=== PATIENT | male | born 1945 | race Two or more races ===

== ENCOUNTER → 2025-01-30 | Outpatient (CLI) | payer OTHER ==
[2025-01-30 11:19] LABS: Urine Bacteria None Seen /hpf (None Seen)
[2025-01-30 11:21] LABS: Basophils # (auto) 0 10 ^3/uL (0-0.2); Basophils % (auto) 0.8 % (0.0-2.0); Eosinophils # (auto) 0 10 ^3/uL (0-0.8); Eosinophils % (auto) 0.4 % (0.0-7.0); Hematocrit 42.4 % (41.0-53.0); Hemoglobin 14.7 g/dL (13.5-17.5); Lymphocytes # (auto) 1.6 10 ^3/uL (0.4-5.4); Lymphocytes % (auto) 31.5 % (10.0-50.0); Mean Corpuscular Hemoglobin 33.1 pg (28.0-32.0); Mean Corpuscular Hgb Conc. 34.7 g/dL (32.0-36.0); Mean Corpuscular Volume 95.5 fL (80.0-100.0); Monocytes # (auto) 0.4 10 ^3/uL (0-1.3); Neutrophils % (auto) 60.3 % (37.0-80.0); Nucleated Red Blood Cells % 0.1 %; Platelet Count (auto) 142 10^3/uL (140-450); Red Blood Cells 4.44 10^6/uL (4.5-5.90); Red Cell Distribution Width 12.5 % (11.8-14.3)
[2025-01-30 11:26] LABS: Urine Blood Negative /uL (Negative); Urine Clarity Clear (Clear); Urine Color Yellow (Yellow); Urine Mucus FEW (None Seen); Urine Protein, UAD Negative (Negative); Urine Specific Gravity 1.021 (1.001-1.035); Urine Squamous Epithelial Cell None Seen /hpf (<5); Urine Urobilinogen Normal (Negative); Urine WBC 1 /HPF (0-3); Urine pH 5.5 (5.0-9.0)
[2025-01-30 12:01] LABS: Prostate Specific Antigen 1.53 ng/mL (0.0-4.0)
[2025-01-30 12:02] LABS: Alanine Aminotransferase 20 U/L (7-40); Albumin 4.5 g/dL (3.2-4.8); Alkaline Phosphatase 82 U/L (46-116); Anion Gap 8 (5-15); Aspartate Aminotransferase 19 U/L (13-40); BUN/Creatinine Ratio 17.9 (10.0-20.0); Blood Urea Nitrogen 17 mg/dL (9-23); Calcium 9.4 mg/dL (8.7-10.4); Carbon Dioxide 24 mmol/L (20-31); Chloride 111 mmol/L (98-107); Cholesterol 109 mg/dL (< 200); Glucose 115 mg/dL (74-106); HDL Cholesterol 58 mg/dL (40-59); LDL Cholesterol 38 mg/dL (< 100); Potassium 3.9 mmol/L (3.5-5.1); Sodium 143 mmol/L (136-145); Total Protein 6.4 g/dL (5.7-8.2); Triglycerides 55 mg/dL (< 150)
[2025-01-30 12:03] LABS: Bilirubin, Total 0.9 mg/dL (0.2-1.0)
[2025-01-30 12:05] LABS: Free T4 (Free Thyroxine) 1.11 ng/dL (0.89-1.76)
== END | disposition home or self-care (01) ==
LOC: LAB 10:59
PROVIDERS: ATTEND Internal Medicine
DX: R35.1 Nocturia (principal); Z00.01 Encounter for general adult medical examination with abnormal findings
CPT/HCPCS: 36415; 80053; 80061; 81001; 83036; 84153; 84439; 84443; 85025

== ENCOUNTER → 2025-04-19 | Outpatient (CLI) | payer OTHER | END | disposition home or self-care (01) | LOC: LAB 13:52 | PROVIDERS: ATTEND Family Medicine | DX: D48.5 Neoplasm of uncertain behavior of skin (principal) ==

== ENCOUNTER → 2025-04-26 | Outpatient (CLI) | payer OTHER | END | disposition home or self-care (01) | LOC: LAB 11:21 | PROVIDERS: ATTEND Family Medicine | DX: D48.5 Neoplasm of uncertain behavior of skin (principal) ==

== ENCOUNTER → 2025-06-21 | Outpatient (CLI) | payer OTHER | END | disposition home or self-care (01) | LOC: LAB 08:34 | PROVIDERS: ATTEND Family Medicine | DX: Z01.812 Encounter for preprocedural laboratory examination (principal); L72.3 Sebaceous cyst ==

== ENCOUNTER → 2025-07-12 | Outpatient (CLI) | payer OTHER | END | disposition home or self-care (01) | LOC: LAB 11:57 | PROVIDERS: ATTEND Family Medicine | DX: Z01.812 Encounter for preprocedural laboratory examination (principal); D48.5 Neoplasm of uncertain behavior of skin ==

== ENCOUNTER 2025-07-30 13:42 | Outpatient (CLI) | payer OTHER ==
[2025-07-30 14:06] LABS: Urine Protein, UAD Negative (Negative)
== END 2025-07-30 17:00 | disposition home or self-care (01) ==
LOC: LAB 13:42
PROVIDERS: ATTEND Urology
DX: N40.1 Benign prostatic hyperplasia with lower urinary tract symptoms (principal); R35.1 Nocturia
CPT/HCPCS: 81001; 87086

== ENCOUNTER 2025-08-12 14:39 | Emergency (ER) | payer OTHER ==
[~2025-08-12] VITALS: Ht 182.9 cm; Wt 81.9 kg
[2025-08-12 14:42] VITALS: BP 155/72; PULSE 94; RESP 18; TEMP 97.7; O2SAT 95
--- NOTE | 2025-08-12 15:15 | ED.PDOC ---
Musculoskeletal HPI Comments Seen 80-year-old male with past medical history of hypertension dyslipidemia came to the hospital due to right upper limb swelling. Per patient, a dog bite his right upper limb 2 weeks back, but subsequently the right hand become swollen and hot. He also reports of right upper limb tingling. He denies feve r, which has been, shortness of breath. Home meds: Amlodipine, lisinopril, terazosin, and atorvastatin Chief Complaint: Upper Extremity Time Seen by MD: 15:04 Reviewed Notes: Nurses Notes Allergies: Coded Allergies: NO KNOWN ALLERGIES (Unverified , 08/12/25) Mode of Arrival: Ambulatory Past Medical History Past Medical History (Other): Hypertension and dyslipidemia Constitutional: denies: chills, diaphoresis, fatigue, fever, malaise, sweats, weakness, others EENTM: denies: blurred vision, double vision, ear bleeding, ear discharge, ear drainage, ear pain, ear ringing, eye pain, eye redness, hearing loss, mouth pain, mouth swelling, nasal discharge, nose bleeding, nose congestion, nose pain , photophobia, tearing, throat pain, throat swelling, voice changes, others Respiratory: denies: cough, hemoptysis, orthopnea, SOB at rest, shortness of breath, SOB with excertion, stridor, wheezing, others Cardiovascular: denies: chest pain, dizzy spells, diaphoresis, Dyspnea on exertion, edema, irregular heart beat, left arm pain, lightheadedness, palpitations, PND, syncope, others Gastrointestinal: denies: abdomen distended, abdominal pain, blood streaked bowels, constipated, diarrhea, dysphagia, difficulty swallowing, hematemesis, melena, nausea, poor appetite, poor fluid intake, rectal bleeding, rectal pain, vomiting, others Genitourinary: denies: burning, dysuria, flank pain, frequency, hematuria, incontinence, penile discharge, penile sore, pain, testicle pain, testicle swelling, urgency, others Neurological: denies: dizziness, fainting, headache, left sided numbness, left sided weakness, numbness, paresthesia, pre-existing deficit, right sided numbness, right sided weakness, seizure, speech problems, tingling, tremors, weakness, others Musculoskeletal: reports: others (Right upper limb is swollen and hot from the raised up to med arm.); denies: back pain, gout, joint pain, joint swelling, muscle pain, muscle stiffness, neck pain Integumetry: denies: bruises, change in color, change in hair/nails, dryness, laceration, lesions, lumps, rash, wounds, others Allergic/Immunocompromised: denies: Difficulty Healing, Frequent Infections, Hives, Itching, others Hematologic/Lymphatic: denies: anemia, blood clots, easy bleeding, easy bruising, swollen glands, others Endocrine: denies: excessive hunger, excessive sweating, excessive thirst, excessive urination, flushing, intolerance to cold, intolerance to heat, unexplained weight gain, unexplained weight loss, others Psychiatric: denies: anxiety, bipolar disorder, depression, hopeless, panic disorder, schizophrenia, sleepless, suicidal, others Physical Exam General Appearance: No Apparent Distress, Normal HEENT: Normal ENT Inspection, Pharynx Normal, TMs Normal Neck: Full Range of Motion, Non-Tender, Normal, Normal Inspection Respiratory: Chest Non-Tender, Lungs Clear, No Accessory Muscle Use, No Respiratory Distress, Normal Breath Sounds Cardiovascular: No Edema, No JVD, No Murmur, No Gallop, Normal Peripheral Pulse s, Regular Rate/Rhythm Breast Exam: Deferred Gastrointestinal: No Organomegaly, Non Tender, No Pulsatile Mass, Normal Bowel Sounds, Soft Genitalia: Deferred Pelvic: Deferred Rectal: Deferred Extremities: No calf tenderness, Normal capillary refill, Normal inspection, Normal range of motion, Non-tender, No pedal edema, Other (Right upper limb is swollen and hot from breast up to med arm, nontender) Musculoskeletal : Apperance: Normal Neurologic: Alert, caddy master II-XII nml as Tested, No Motor Deficits, Normal Affect, Normal Mood, No Sensory Deficits Cerebellar Function: Normal Reflexes: Normal Skin: Dry, Normal Color, Warm Lymphatic: No Adenopathy Was a procedure done? Was a procedure done?: No Differential Diagnosis EXT Differential Diagnosis: Cellulitis, Deep Vein Thrombosis, Arthritis X-Ray, Labs, Meds, VS Vital Signs Date Time Temp Pulse Resp B/P (MAP) Pulse Ox O2 Delivery O2 Flow Rate FiO2 08/12/25 14:42 97.7 94 18 155/72 95 97.7 Lab Test 08/12/25 16:06 Range/Units White Blood Count 7.3 4.4-10.8 10^3/uL Red Blood Count 4.47 L 4.5-5.90 10^6/uL Hemoglobin 15.1 13.5-17.5 g/dL Hematocrit 42.6 41.0-53.0 % Mean Corpuscular Volume 95.2 80.0-100.0 fL Mean Corpuscular Hemoglobin 33.7 H 28.0-32.0 pg Mean Corpuscular Hemoglobin Concent 35.4 32.0-36.0 g/dL Red Cell Distribution Width 12.0 11.8-14.3 % Platelet Count 215 140-450 10^3/uL Mean Platelet Volume 8.8 6.9-10.8 fL Neutrophils (%) (Auto) 82.3 H 37.0-80.0 % Lymphocytes (%) (Auto) 9.6 L 10.0-50.0 % Monocytes (%) (Auto) 7.7 0.0-12.0 % Eosinophils (%) (Auto) 0.1 0.0-7.0 % Basophils (%) (Auto) 0.3 0.0-2.0 % Neutrophils # (Auto) 6.0 1.6-8.6 10 ^3/uL Lymphocytes # (Auto) 0.7 0.4-5.4 10 ^3/uL Monocytes # (Auto) 0.6 0-1.3 10 ^3/uL Eosinophils # (Auto) 0 0-0.8 10 ^3/uL Basophils # (Auto) 0 0-0.2 10 ^3/uL Nucleated Red Blood Cells 0.1 % Sodium Level 142 136-145 mmol/L Potassium Level 4.0 3.5-5.1 mmol/L Chloride Level 109 H 98-107 mmol/L Carbon Dioxide Level 22 20-31 mmol/L Anion Gap 11 5-15 Blood Urea Nitrogen 14 9-23 mg/dL Creatinine 0.97 0.700-1.30 mg/dL Glomerular Filtration Rate Calc 78 >90 mL/min BUN/Creatinine Ratio 14.4 10.0-20.0 Serum Glucose 121 H 74-106 mg/dL Lactic Acid Level 1.1 0.4-2.0 mmol/L Calcium Level 9.1 8.7-10.4 mg/dL Total Bilirubin 0.6 0.2-1.0 mg/dL Aspartate Amino Transferase (AST) 21 13-40 U/L Alanine Aminotransferase (ALT) 19 7-40 U/L Alkaline Phosphatase 90 46-116 U/L Total Protein 6.8 5.7-8.2 g/dL Albumin 4.4 3.2-4.8 g/dL Time of 1ST Reevaluation: 17:42 Reevaluation 1ST: Improved Patient Education/Counseling: Diagnosis, Treatment, Prognosis, Need For Follow Up Family Education/Counseling: No Family Present Comments Patient came to the hospital due to right upper limb swelling. Patient has history of the bite. On physical examination there was no open wound Upper limb was raised and swollen. Right upper ultrasound performed, ruled out DVT On subsequent checkup, patient was feeling better. Patient will be discharge with antibiotic and pain management as needed. Follow up with the PCP Sepsis Sepsis Reasesment Focused Exam Orders: Laboratory Tests 08/12/25 16:06: Lactic Acid Level 1.1 Departure 1 Departure Time of Disposition: 17:43 Impression: Primary Impression: Cellulitis Disposition: 01 HOME / SELF CARE / HOMELESS Condition: Fair Critical Care Note Critical Care Time?: Yes (35 min-critical care time only) Stability Stability form required: No Heart Score Heart Score: Heart Score Response (Comments) Value History N/A 0 EKG N/A 0 Age N/A 0 Risk Factors N/A 0 Troponin N/A 0 Total 0 ROSANNE GRIFFITH Aug 12, 2025 15:15
--- NOTE | 2025-08-12 16:10 | DVH ---
RIGHT Upper Extremity Venous Duplex Clinical History: swollen Comparison: None Technique: Duplex Doppler evaluation of the venous system of the RIGHT lower neck and upper extremity including color Doppler and spectral/pulsed waveform analysis was performed. Findings: The internal jugular vein demonstrates appropriate compressibility and waveform variability. The subclavian vein is patent on color Doppler evaluation without intraluminal thrombus and demonstra marcel waveform variability. The visualized portion of the brachiocephalic vein is patent on color Doppler evaluation without intr aluminal thrombus and demonstrates waveform variability. The axillary vein demonstrates appropriate compressibility and waveform variability. The brachial veins demonstrate appropriate compressibility and patency on Doppler evaluation. The basilic vein demonstrates appropriate compressibility and patency on Doppler evaluation. The cephalic vein demonstrates appropriate compressibility and patency on Doppler evaluation. Impression: 1. No venous thrombus identified in the RIGHT upper extremity vessels evaluated above. 2. If clinical concern/symptoms persist or worsen, short-interval follow-up study is suggested.
[2025-08-12 16:25] LABS: Hematocrit 42.6 % (41.0-53.0); Hemoglobin 15.1 g/dL (13.5-17.5); Mean Corpuscular Hemoglobin 33.7 pg (28.0-32.0); Mean Corpuscular Volume 95.2 fL (80.0-100.0); Nucleated Red Blood Cells % 0.1 %
[2025-08-12 16:32] LABS: Alanine Aminotransferase 19 U/L (7-40); Albumin 4.4 g/dL (3.2-4.8); Alkaline Phosphatase 90 U/L (46-116); Anion Gap 11 (5-15); BUN/Creatinine Ratio 14.4 (10.0-20.0); Blood Urea Nitrogen 14 mg/dL (9-23); Calcium 9.1 mg/dL (8.7-10.4); Carbon Dioxide 22 mmol/L (20-31); Potassium 4.0 mmol/L (3.5-5.1); Sodium 142 mmol/L (136-145); Total Protein 6.8 g/dL (5.7-8.2)
[2025-08-12 16:33] LABS: Bilirubin, Total 0.6 mg/dL (0.2-1.0); Chloride 109 mmol/L (98-107); Glucose 121 mg/dL (74-106)
[2025-08-12] MEDS ORDERED: AUG875T PO (17:45)
== END 2025-08-12 18:45 | disposition home or self-care (01) ==
LOC: ER 14:39
DX: L03.115 Cellulitis of right lower limb (principal); I10 Essential (primary) hypertension; E78.5 Hyperlipidemia, unspecified; W54.0XXA Bitten by dog, initial encounter; Y93.89 Activity, other specified; Y92.89 Other specified places as the place of occurrence of the external cause; Y99.8 Other external cause status
CPT/HCPCS: 36415; 80053; 83605; 85025; 93971

== ENCOUNTER 2025-08-14 08:51 | Outpatient (CLI) | payer OTHER ==
[~2025-08-14 08:51] MED LIST: AUG875T PO
[2025-08-14 09:20] LABS: Hematocrit 43.2 % (41.0-53.0); Hemoglobin 14.8 g/dL (13.5-17.5); Mean Corpuscular Hemoglobin 32.7 pg (28.0-32.0); Mean Corpuscular Volume 95.1 fL (80.0-100.0); Nucleated Red Blood Cells % 0.0 %
[2025-08-14 09:42] LABS: Alanine Aminotransferase 16 U/L (7-40); Albumin 4.4 g/dL (3.2-4.8); Alkaline Phosphatase 86 U/L (46-116); Anion Gap 10 (5-15); BUN/Creatinine Ratio 12.5 (10.0-20.0); Blood Urea Nitrogen 11 mg/dL (9-23); Calcium 9.2 mg/dL (8.7-10.4); Carbon Dioxide 25 mmol/L (20-31); Cholesterol 93 mg/dL (< 200); HDL Cholesterol 48 mg/dL (40-59); Potassium 4.0 mmol/L (3.5-5.1); Sodium 143 mmol/L (136-145); Total Protein 6.9 g/dL (5.7-8.2); Triglycerides 83 mg/dL (< 150)
[2025-08-14 09:43] LABS: Bilirubin, Total 0.7 mg/dL (0.2-1.0)
[2025-08-14 09:48] LABS: Chloride 108 mmol/L (98-107); Glucose 109 mg/dL (74-106)
== END 2025-08-14 17:00 | disposition home or self-care (01) ==
LOC: LAB 08:51
PROVIDERS: ATTEND Internal Medicine
DX: C44.319 Basal cell carcinoma of skin of other parts of face (principal); I10 Essential (primary) hypertension; E78.2 Mixed hyperlipidemia; R73.01 Impaired fasting glucose; Z00.01 Encounter for general adult medical examination with abnormal findings
CPT/HCPCS: 36415; 80053; 80061; 83036; 84439; 84443; 85025

== ENCOUNTER → 2025-08-16 | Outpatient (CLI) | payer OTHER ==
[~2025-08-16] MED LIST changes: +LISI20TA56 PO
== END | disposition home or self-care (01) ==
LOC: LAB 12:57
PROVIDERS: ATTEND Family Medicine
DX: Z01.812 Encounter for preprocedural laboratory examination (principal); C44.319 Basal cell carcinoma of skin of other parts of face

== ENCOUNTER 2025-09-16 11:26 | Inpatient (IN) | payer OTHER ==
[~2025-09-16] VITALS: Ht 182.9 cm; Wt 77.0 kg
[~2025-09-16 11:26] MED LIST changes: -LISI20TA56 PO
--- NOTE | 2025-09-16 11:57 | ED.PDOC ---
HPI Comments This is a 80 year old male TERRANCE presenting to the ED with chief complaint of palpitations. Patient reports that he suddenly started to experiencing palpitations with associated dizziness and fast heart rate since earlier this morning. Patient relays that his smart watch picked up his fast heart rate. EMS states patient was in A-Fib at a rate between the 140s and 160s. Patient denies any chest pain, SOB, headache, N/V, or syncope. Chief Complaint: Palpitations Time Seen by MD: 11:55 Reviewed Notes: Nurses Notes, Commercial Front Load Operator Notes, Medications, Allergies Allergies: Coded Allergies: NO KNOWN ALLERGIES (Unverified , 08/12/25) Home Meds Active Scripts Amoxicillin & Pot Clavulanate (AUGMENTIN TABLET) 875 Mg Tb, 875 MG PO BID for 7 Days, #14 TAB Prov:ROSANNE GRIFFITH RESDIENT 08/12/25 Information Source: Patient, Emergency Med Personnel Mode of Arrival: EMS Severity: Moderate Timing: Hours Duration: Since onset Prehospital treatment: 12 Lead EKG Onset: At Rest Cardiac Risk Factors: HTN PE Risk Factors: None Associated Signs and Symptoms: Palpitations Past Medical History PAST MEDICAL HISTORY: AFIB, HTN Surgical History: Denies all surgeries Family History Family History: Reviewed,noncontributory to illness Social History Smoker: Non-Smoker Alcohol: Occasionally Drugs: Denies Drug Use Lives In: Home Constitutional: denies: chills, diaphoresis, fatigue, fever, malaise, sweats, weakness, others EENTM: denies: blurred vision, double vision, ear bleeding, ear discharge, ear drainage, ear pain, ear ringing, eye pain, eye redness, hearing loss, mouth pain, mouth swelling, nasal discharge, nose bleeding, nose congestion, nose pain, photophobia, tearing, throat pain, throat swelling, voice changes, others Respiratory: denies: cough, hemoptysis, orthopnea, SOB at rest, shortness of breath, SOB with excertion, stridor, wheezing, others Cardiovascular: reports: palpitations; denies: chest pain, dizzy spells, diaphoresis, Dyspnea on exertion, edema, irregular heart beat, left arm pain, lightheadedness, PND, syncope, others Gastrointestinal: denies: abdomen distended, abdominal pain, blood streaked bowels, constipated, diarrhea, dysphagia, difficulty swallowing, hematemesis, melena, nausea, poor appetite, poor fluid intake, rectal bleeding, rectal pain, vomiting, others Genitourinary: denies: burning, dysuria, flank pain, frequency, hematuria, incontinence, penile discharge, penile sore, pain, testicle pain, testicle swelling, urgency, others Neurological: reports: dizziness; denies: fainting, headache, left sided numbness, left sided weakness, numbness, paresthesia, pre-existing deficit, right sided numbness, right sided weakness, seizure, speech problems, tingling, tremors, weakness, others Musculoskeletal: denies: back pain, gout, joint pain, joint swelling, muscle pain, muscle stiffness, neck pain, others Integumetry: denies: bruises, change in color, change in hair/nails, dryness, laceration, lesions, lumps, rash, wounds, others Allergic/Immunocompromised: denies: Difficulty Healing, Frequent Infections, Hives, Itching, others Hematologic/Lymphatic: denies: anemia, blood clots, easy bleeding, easy bruising, swollen glands, others Endocrine: denies: excessive hunger, excessive sweating, excessive thirst, excessive urination, flushing, intolerance to cold, intolerance to heat, unexplained weight gain, unexplained weight loss, others Psychiatric: denies: anxiety, bipolar disorder, depression, hopeless, panic disorder, schizophrenia, sleepless, suicidal, others All Other Systems: Reviewed and Negative Physical Exam General Appearance: Mild Distress, Normal HEENT: Normal ENT Inspection, PERRL/EOMI Neck: Full Range of Motion, Non-Tender, Normal, Normal Inspection Respiratory: Chest Non-Tender, Lungs Clear, No Accessory Muscle Use, No Respiratory Distress, Normal Breath Sounds Cardiovascular: Irregular, No Murmur, Normal Peripheral Pulses, Tachycardia Breast Exam: Deferred Gastrointestinal: No Organomegaly, Non Tender, No Pulsatile Mass, Normal Bowel Sounds, Soft Genitalia: Deferred Pelvic: Deferred Rectal: Deferred Extremities: No calf tenderness, Normal capillary refill, Normal inspection, Normal range of motion, Non-tender, No pedal edema Neurologic: Alert, typesetting supervisor II-XII nml as Tested, No Motor Deficits, Normal Affect, Normal Mood, No Sensory Deficits Cerebellar Function: Normal Reflexes: Normal Skin: Dry, Normal Color, Warm Peripheral Pulses: 1+ carotid (R), 1+ carotid (L) Lymphatic: No Adenopathy EKG EKG : Pulse Rate (adult): 146 Wray: Normal Cardiac Rhythm: Afib Was a procedure done? Was a procedure done?: No CP Differential Dx Differential Diagnosis: A-fib, Anxiety / Panic Attack, Electrolyte Disorder, Hyperthyroidism, Pulmonary Embolus Differential Diagnosis: CHF Differential Diagnosis: Angina, Esophageal reflux/spasm, Pulmonary Embolus X-Ray, Labs, Meds, VS Vital Signs Date Time Temp Pulse Resp B/P (MAP) Pulse Ox O2 Delivery O2 Flow Rate FiO2 09/16/25 12:31 120 09/16/25 12:30 98.0 83 17 123/74 (90) 73 98.0 09/16/25 12:29 Room Air* 0 21 09/16/25 12:24 83 123/74 09/16/25 12:21 146 09/16/25 11:31 146 09/16/25 11:30 98.0 160 18 140/80 97 98.0 Lab Test 09/16/25 12:43 Range/Units White Blood Count 7.4 4.4-10.8 10^3/uL Red Blood Count 4.59 4.5-5.90 10^6/uL Hemoglobin 14.9 13.5-17.5 g/dL Hematocrit 44.2 41.0-53.0 % Mean Corpuscular Volume 96.4 80.0-100.0 fL Mean Corpuscular Hemoglobin 32.5 H 28.0-32.0 pg Mean Corpuscular Hemoglobin Concent 33.7 32.0-36.0 g/dL Red Cell Distribution Width 12.7 11.8-14.3 % Platelet Count 167 140-450 10^3/uL Mean Platelet Volume 9.7 6.9-10.8 fL Neutrophils (%) (Auto) 77.4 37.0-80.0 % Lymphocytes (%) (Auto) 16.2 10.0-50.0 % Monocytes (%) (Auto) 5.8 0.0-12.0 % Eosinophils (%) (Auto) 0.2 0.0-7.0 % Basophils (%) (Auto) 0.4 0.0-2.0 % Neutrophils # (Auto) 5.7 1.6-8.6 10 ^3/uL Lymphocytes # (Auto) 1.2 0.4-5.4 10 ^3/uL Monocytes # (Auto) 0.4 0-1.3 10 ^3/uL Eosinophils # (Auto) 0 0-0.8 10 ^3/uL Basophils # (Auto) 0 0-0.2 10 ^3/uL Nucleated Red Blood Cells 0.0 % Prothrombin Time 11.9 H 9.3-11.8 sec Prothrombin Time INR 1.14 0.9-1.15 Activated Partial Thromboplast Time 25.0 24.5-34.5 SEC D-Dimer, Quantitative 0.35 0.0-0.49 mg/L FEU Sodium Level 145 136-145 mmol/L Potassium Level 3.9 3.5-5.1 mmol/L Chloride Level 109 H 98-107 mmol/L Carbon Dioxide Level 26 20-31 mmol/L Anion Gap 10 5-15 Blood Urea Nitrogen 15 9-23 mg/dL Creatinine 0.93 0.700-1.30 mg/dL Glomerular Filtration Rate Calc 82 >90 mL/min BUN/Creatinine Ratio 16.1 10.0-20.0 Serum Glucose 122 H 74-106 mg/dL Calcium Level 9.1 8.7-10.4 mg/dL Magnesium Level 2.2 1.6-2.6 mg/dL Total Bilirubin 1.1 H 0.2-1.0 mg/dL Aspartate Amino Transferase (AST) 21 13-40 U/L Alanine Aminotransferase (ALT) 19 7-40 U/L Alkaline Phosphatase 86 46-116 U/L Troponin I High Sensitivity 14 </=54 ng/L Total Protein 6.6 5.7-8.2 g/dL Albumin 4.3 3.2-4.8 g/dL Thyroid Stimulating Hormone (TSH) 0.90 0.55-4.78 uIU/mL Current Medications Medications (Trade) Dose Ordered Sig/Shan Route Start Time Stop Time Status Last Admin Aspirin 162 mg ONCE ONCE PO 09/16/25 12:00 09/16/25 12:12 DC 09/16/25 12:24 Sodium Chloride 1,000 ml @ 150 mls/hr Q6H40M ONCE IV 09/16/25 12:00 09/16/25 18:39 09/16/25 12:24 Metoprolol Tartrate (Lopressor) 2.5 mg ONCE ONCE IV 09/16/25 12:00 09/16/25 12:12 DC 09/16/25 12:24 [place] [id number] Ph: [phone] DIAGNOSTIC IMAGING Diagnostic Imaging Report : [id number] Signed PATIENT: JENNIFER ROGERSCCT: [id number] UNIT: [id number] : 1945 LOC: ER ROOM / BED: / AGE / SEX: 80 / M ADM STATUS: REG ER SERVICE 115 ORDERING PHYSICIAN: LIZ THOMAS MD PROCEDURE(s): CXR2 - CHEST TWO VIEWS ROUTINE REASON: Atrial fibrillation uncontrolled ORDER NUMBER(s): [id number], ACCESSION NUMBER(s): [id number] XY CHEST TWO VIEWS ROUTINE CLINICAL HISTORY: Atrial fibrillation uncontrolled COMPARISON: None TECHNIQUE: Frontal and lateral view of the chest was obtained FINDINGS: Lines and Tubes: None Lungs: No focal consolidation. Pleura: No effusion. No pneumothorax. Cardiomediastinal contours: Unremarkable Bones: No acute osseous abnormality. IMPRESSION: 1. No acute cardiopulmonary disease. ATED BY: DARSHAN BARRETO Jr., DO DICTATED DATE/TIME: 09/16/251225 SIGNED BY: DARSHAN BARRETO Jr., SIGNED DATE/TIME: 09/16/251225 CC: X-Ray, Labs, Meds, VS Comment Course in the hospital eventful patient came in because of palpitation first- time no history of irregular heartbeats Chest x-ray is normal EKG shows uncontrolled atrial fibrillation at 146 CBC normal INR 1.14 D-dimer 0.35 CMP normal Magnesium 2.2 Troponin 14 TSH 0.90 Patient will be admitted for atrial fibrillation first-time Images Reviewed?: Images reviewed and evaluated by me Time of 1ST Reevaluation: 12:55 Reevaluation 1ST: Unchanged Patient Education/Counseling: Diagnosis, Treatment, Prognosis, Need For Follow Up Family Education/Counseling: Diagnosis, Treatment, Prognosis, Need For Follow Up, No Family Present SEPSIS Sepsis Screen Date sepsis recognized/suspect: Sep 16, 2025 Time Sepsis recognized/suspect: 1150 Recent Procedure: No On Antibiotic Therapy: No Respiratory Rate >20: No Heart Rate >90: Yes Temp<36 C (96.8 F) or >38.3 C: No SBP <90 or MAP <65 mmHG: No New Acute Mental Status Change: No Is the patient on CPAP, BIPAP,: No Physician Orders Electrocardigram (09/16/25 11:41) Electrocardigram (09/16/25 12:41) Electrocardigram (09/16/25 14:41) Heplock Iv (09/16/25 11:55) Blood Pressure (09/16/25 11:55) Chest Two Views Routine (09/16/25 11:55) Sodium Chloride 0.9% (09/16/25 12:00) Urinalysis (09/16/25 11:55) Vital Signs Date Time Temp Pulse Resp B/P (MAP) Pulse Ox O2 Delivery O2 Flow Rate FiO2 09/16/25 12:31 120 09/16/25 12:30 98.0 83 17 123/74 (90) 73 98.0 09/16/25 12:29 Room Air* 0 21 09/16/25 12:24 83 123/74 09/16/25 12:21 146 09/16/25 11:31 146 09/16/25 11:30 98.0 160 18 140/80 97 98.0 Laboratory Tests Test 09/16/25 12:43 White Blood Count 7.4 10^3/uL (4.4-10.8) Medications Medications Dose Ordered Sig/Shan Route Start Time Stop Time Status Last Admin Dose Admin Aspirin 162 mg ONCE ONCE PO 09/16/25 12:00 09/16/25 12:12 DC 09/16/25 12:24 Metoprolol Tartrate 2.5 mg ONCE ONCE IV 09/16/25 12:00 09/16/25 12:12 DC 09/16/25 12:24 Sodium Chloride 1,000 ml @ 150 mls/hr Q6H40M ONCE IV 09/16/25 12:00 09/16/25 18:39 09/16/25 12:24 Departure 1 Departure Time of Disposition: 13:33 Impression: Primary Impression: Paroxysmal atrial fibrillation Additional Impression: History of hypertension Disposition: ADMITTED INPATIENT Admit to: Tele Condition: Fair Critical Care Note Critical Care Time?: No Stability Stability form required: Yes Unstable for transfer: Telemetry monitoring (Telemetry monitoring required), Requires medication (Requires Med for stabilization) Heart Score Heart Score: Heart Score Response (Comments) Value History Slightly Suspicious 0 EKG Repolarization Disturb 1 Age >65 2 Risk Factors 1 or 2 risk factors 1 Troponin Normal limit 0 Total 4 I personally scribed for LIZ THOMAS MD ([email or web address]) on 09/16/25 at 11:57. Electronically submitted by Dre Kay ([email or web address]). I personally scribed for LIZ THOMAS MD ([email or web address]) on 09/16/25 at 12:53. Electronically submitted by Dre Kay ([email or web address]). LIZ THOMAS MD Sep 16, 2025 11:57
[2025-09-16] MEDS: SODIUM CHLORIDE 0.9% 1,000 ML IV ONE (12:24)
[2025-09-16] MEDS: METOPROLOL TARTRATE 1MG/1ML-5ML VIAL IV ONE (12:24)
--- NOTE | 2025-09-16 12:30 | DVH ---
XY CHEST TWO VIEWS ROUTINE CLINICAL HISTORY: Atrial fibrillation uncontrolled COMPARISON: None TECHNIQUE: Frontal and lateral view of the chest was obtained FINDINGS: Lines and Tubes: None Lungs: No focal consolidation. Pleura: No effusion. No pneumothorax. Cardiomediastinal contours: Unremarkable Bones: No acute osseous abnormality. IMPRESSION: 1. No acute cardiopulmonary disease.
[2025-09-16 13:04] LABS: Hematocrit 44.2 % (41.0-53.0); Hemoglobin 14.9 g/dL (13.5-17.5); Mean Corpuscular Hemoglobin 32.5 pg (28.0-32.0); Mean Corpuscular Volume 96.4 fL (80.0-100.0); Nucleated Red Blood Cells % 0.0 %
[2025-09-16 13:21] LABS: INR 1.14 (0.9-1.15); Partial Thromboplastin Time 25.0 SEC (24.5-34.5); Prothrombin Time 11.9 sec (9.3-11.8)
[2025-09-16 13:23] LABS: Alanine Aminotransferase 19 U/L (7-40); Albumin 4.3 g/dL (3.2-4.8); Alkaline Phosphatase 86 U/L (46-116); Anion Gap 10 (5-15); BUN/Creatinine Ratio 16.1 (10.0-20.0); Blood Urea Nitrogen 15 mg/dL (9-23); Calcium 9.1 mg/dL (8.7-10.4); Carbon Dioxide 26 mmol/L (20-31); Magnesium 2.2 mg/dL (1.6-2.6); Potassium 3.9 mmol/L (3.5-5.1); Sodium 145 mmol/L (136-145); Total Protein 6.6 g/dL (5.7-8.2)
[2025-09-16 13:24] LABS: Bilirubin, Total 1.1 mg/dL (0.2-1.0)
[2025-09-16 13:28] LABS: Chloride 109 mmol/L (98-107); Glucose 122 mg/dL (74-106)
[2025-09-16] MEDS ORDERED: LISI20TA56 PO (14:51)
[2025-09-16] MEDS ORDERED: HYDROcodone-ACET 5/325MG TAB PO PRN (15:00)
[2025-09-16] MEDS ORDERED: DOCUSATE SOD 100 MG CAP PO PRN (15:00)
[2025-09-16] MEDS ORDERED: ONDANSETRON HCL 4 MG/2 ML VIAL IV PRN (15:00)
[2025-09-16] MEDS ORDERED: NITROGLYCERIN 0.4 MG SL TAB SL PRN (15:00)
[2025-09-16] MEDS ORDERED: MORPHINE SULFATE INJ 2 MG/ml SYRG IV PRN (15:00)
[2025-09-16] MEDS ORDERED: ACETAMINOPHEN 325 MG TAB PO PRN (15:00)
--- NOTE | 2025-09-16 15:09 | DVHHP2 ---
History of Present Illness Reason for Visit: Palpitations History of Present Illness González Alcala is an 80-year-old male with past medical history of hypertension, who came to the hospital for palpitations. Patient states he was at home when he suddenly began to feel palpitations and dizziness. He checked his smart watch that told him his heart rate was 140-160's. Denies any chest pain, shortness of breath, nausea, vomiting, or syncope. Denies any history of atrial fibrillation. Cardiovascular: HTN Past Surgical History: None Smoke: No ALCOHOL: rare Drugs: None Lives: Alone Domestic Violence: Neg Review of Systems Constitutional: No: Fever, Chills, Sweats, Weakness, Malaise, Other Eyes: No: Pain, Vision change, Conjunctivae inflammation, Eyelid inflammation, Other, Redness ENT: No: Ear pain, Ear discharge, Nose pain, Nose discharge, Nose congestion, Mouth pain, Mouth swelling, Throat pain, Throat swelling, Other Respiratory: No: Cough, Dry, Shortness of breath, SOB with excertion, Wheezing, Hemoptysis, Pleuritic Pain, Sputum, Wheezing, Other Cardiovascular: Palpitations; No: Chest Pain, Orthopnea, Paroxysmal Noc. Dyspnea, Edema, Lt Headedness, Other Gastrointestinal: No: Nausea, Vomiting, Abdominal Pain, Diarrhea, Constipation, Melena, Hematochezia, Other Genitourinary: No Dysuria, No Frequency, No Incontinence, No Hematuria, No Retention, No Other Musculoskeletal: No: other, neck pain, shoulder pain, arm pain, back pain, hand pain, leg pain, foot pain Skin: No: Rash, Lesions, Jaundice, Bruising, Other Neurological: Other (dizziness); No: Weakness, Numbness, Incoordination, Change in speech, Confusion, Seizures Allergies: Coded Allergies: NO KNOWN ALLERGIES (Unverified , 08/12/25) Exam Vital Signs Vital Signs Date Time Temp Pulse Resp B/P (MAP) Pulse Ox O2 Delivery O2 Flow Rate FiO2 09/16/25 14:28 109 09/16/25 14:00 97 124/84 (97) 97 09/16/25 12:30 98.0 98.0 09/16/25 12:29 Room Air* 0 21 General Appearance: Alert, Oriented X3, Cooperative, moderate distress HEENT: Atraumatic, PERRLA, Mucous membr. moist/pink Respiratory: Clear to auscultation, Normal air movement Cardiovascular: Normal S1, Normal S2, Other (atrial fibrillation) Abdominal: Normal bowel sounds, Soft, No tenderness, No hepatospenomegaly Extremities: No clubbing, No cyanosis, No edema, Normal pulses, No tenderness/swelling Skin: No rashes, No breakdown, No significant lesion Neuro: Normal gait, Normal speech, Strength at 5/5 X4 ext Psych/Mental Status: Mental status NL, Mood NL Labs/Xrays Labs Test 09/16/25 12:43 Range/Units White Blood Count 7.4 4.4-10.8 10^3/uL Red Blood Count 4.59 4.5-5.90 10^6/uL Hemoglobin 14.9 13.5-17.5 g/dL Hematocrit 44.2 41.0-53.0 % Mean Corpuscular Volume 96.4 80.0-100.0 fL Mean Corpuscular Hemoglobin 32.5 H 28.0-32.0 pg Mean Corpuscular Hemoglobin Concent 33.7 32.0-36.0 g/dL Red Cell Distribution Width 12.7 11.8-14.3 % Platelet Count 167 140-450 10^3/uL Mean Platelet Volume 9.7 6.9-10.8 fL Neutrophils (%) (Auto) 77.4 37.0-80.0 % Lymphocytes (%) (Auto) 16.2 10.0-50.0 % Monocytes (%) (Auto) 5.8 0.0-12.0 % Eosinophils (%) (Auto) 0.2 0.0-7.0 % Basophils (%) (Auto) 0.4 0.0-2.0 % Neutrophils # (Auto) 5.7 1.6-8.6 10 ^3/uL Lymphocytes # (Auto) 1.2 0.4-5.4 10 ^3/uL Monocytes # (Auto) 0.4 0-1.3 10 ^3/uL Eosinophils # (Auto) 0 0-0.8 10 ^3/uL Basophils # (Auto) 0 0-0.2 10 ^3/uL Nucleated Red Blood Cells 0.0 % Prothrombin Time 11.9 H 9.3-11.8 sec Prothrombin Time INR 1.14 0.9-1.15 Activated Partial Thromboplast Time 25.0 24.5-34.5 SEC D-Dimer, Quantitative 0.35 0.0-0.49 mg/L FEU Sodium Level 145 136-145 mmol/L Potassium Level 3.9 3.5-5.1 mmol/L Chloride Level 109 H 98-107 mmol/L Carbon Dioxide Level 26 20-31 mmol/L Anion Gap 10 5-15 Blood Urea Nitrogen 15 9-23 mg/dL Creatinine 0.93 0.700-1.30 mg/dL Glomerular Filtration Rate Calc 82 >90 mL/min BUN/Creatinine Ratio 16.1 10.0-20.0 Serum Glucose 122 H 74-106 mg/dL Calcium Level 9.1 8.7-10.4 mg/dL Magnesium Level 2.2 1.6-2.6 mg/dL Total Bilirubin 1.1 H 0.2-1.0 mg/dL Aspartate Amino Transferase (AST) 21 13-40 U/L Alanine Aminotransferase (ALT) 19 7-40 U/L Alkaline Phosphatase 86 46-116 U/L Troponin I High Sensitivity 14 </=54 ng/L Total Protein 6.6 5.7-8.2 g/dL Albumin 4.3 3.2-4.8 g/dL Thyroid Stimulating Hormone (TSH) 0.90 0.55-4.78 uIU/mL XY CHEST TWO VIEWS ROUTINE FINDINGS: Lines and Tubes: None Lungs: No focal consolidation. Pleura: No effusion. No pneumothorax. Cardiomediastinal contours: Unremarkable Bones: No acute osseous abnormality. IMPRESSION: 1. No acute cardiopulmonary disease. SEPSIS Sepsis Screen Date sepsis recognized/suspect: Sep 16, 2025 Time Sepsis recognized/suspect: 1150 Recent Procedure: No On Antibiotic Therapy: No Respiratory Rate >20: No Heart Rate >90: Yes Temp<36 C (96.8 F) or >38.3 C: No SBP <90 or MAP <65 mmHG: No New Acute Mental Status Change: No Is the patient on CPAP, BIPAP,: No Physician Orders Electrocardigram (09/16/25 11:41) Electrocardigram (09/16/25 12:41) Electrocardigram (09/16/25 14:41) Heplock Iv (09/16/25 11:55) Blood Pressure (09/16/25 11:55) Chest Two Views Routine (09/16/25 11:55) Sodium Chloride 0.9% (09/16/25 12:00) Urinalysis (09/16/25 11:55) Admit (09/16/25 14:47) Code Status (09/16/25 14:47) 2 Gm Sodium Diet (09/16/25 Dinner) Hydrocodone-Acet 5/325mg Tab ([place] 5/32 (09/16/25 15:00) Ondansetron Hcl (Zofran) (09/16/25 15:00) Docusate Sodium Capsule (Colace Capsule) (09/16/25 15:00) Enoxaparin Sodium (Lovenox) (09/17/25 10:00) Complete Blood Count (09/17/25 04:00) Comprehensive Metabolic Panel (09/17/25 04:00) Echo 2d Mode Cardiac Dop (09/16/25 14:47) Condition: Serious (09/16/25 14:47) Acetaminophen Tablet (Tylenol Tablet) (09/16/25 15:00) Nitroglycerin Sublingual (Ntrostat Subli (09/16/25 15:00) Morphine Sulfate Injection (09/16/25 15:00) Stat Ekg For Chest Pain (09/16/25 14:47) Notify Md Of Changes From Base (09/16/25 14:47) Warble Saw Operator For 24 Hours (09/16/25 14:47) Emergency Dysrhythmia Protocol (09/16/25 14:47) Rhythm Strips Once Every Shift (09/16/25 14:47) Oxygen By Nasal Cannula (09/16/25 14:47) Amiodarone 150 Mg Bolus (09/16/25 15:00) Amiodarone Drip 1 Mg/Min X 6hr (09/16/25 15:00) Amiodarone Drip 0.5 Mg/Min (09/16/25 21:00) * Cardiology Consult (09/16/25 14:47) Lisinopril Tablet (Zestril Tablet) (09/16/25 22:00) Vital Signs Date Time Temp Pulse Resp B/P (MAP) Pulse Ox O2 Delivery O2 Flow Rate FiO2 09/16/25 14:28 109 09/16/25 14:00 104 97 124/84 (97) 97 09/16/25 13:24 95 131/82 09/16/25 12:31 120 09/16/25 12:30 98.0 83 17 123/74 (90) 73 98.0 09/16/25 12:29 Room Air* 0 21 09/16/25 12:24 83 123/74 09/16/25 12:21 146 09/16/25 11:31 146 09/16/25 11:30 98.0 160 18 140/80 97 98.0 Laboratory Tests Test 09/16/25 12:43 White Blood Count 7.4 10^3/uL (4.4-10.8) Medications Medications Dose Ordered Sig/Shan Route Start Time Stop Time Status Last Admin Dose Admin Aspirin 162 mg ONCE ONCE PO 09/16/25 12:00 09/16/25 12:12 DC 09/16/25 12:24 162 MG Metoprolol Tartrate 2.5 mg ONCE ONCE IV 09/16/25 12:00 09/16/25 12:12 DC 09/16/25 12:24 2.5 MG Sodium Chloride 1,000 ml @ 150 mls/hr Q6H40M ONCE IV 09/16/25 12:00 09/16/25 18:39 09/16/25 12:24 150 MLS/HR Assessment/Plan Assessment/Plan Assessment: New onset atrial fibrillation, Hypertension, Plan: Admit to Tele, Cardiology consult, IV Amiodarone, ECHO, TSH, Lipid panel, A1c, Patient states he takes 4 medications at home, he could only remember 1, states he will try to find someone to bring in his medications, Plan discussed with: Patient My Orders Orders - ASHLEY BRITT Procedure Category Date Status Time Admit ADMIT 09/16/25 Transmitted 14:47 Code Status CODE 09/16/25 Transmitted 14:47 2 Gm Sodium Diet DIET 09/16/25 Transmitted Dinner Hydrocodone-Acet PHA 09/16/25 Transmitted 5/325mg Tab ([place] 15:00 Ondansetron Hcl PHA 09/16/25 Transmitted (Zofran) 15:00 Docusate Sodium PHA 09/16/25 Transmitted Capsule (Colace 15:00 Enoxaparin Sodium PHA 09/17/25 Transmitted (Lovenox) 10:00 Complete Blood Count LAB 09/17/25 Verified 04:00 Comprehensive LAB 09/17/25 Verified Metabolic Panel 04:00 Echo 2d Mode Cardiac US 09/16/25 Logged DOP 14:47 Condition: Serious ANTONIA 09/16/25 In Process 14:47 Acetaminophen Tablet PHA 09/16/25 Transmitted (Tylenol Tablet) 15:00 Nitroglycerin PHA 09/16/25 Transmitted Sublingual (Ntrostat 15:00 Morphine Sulfate PHA 09/16/25 Transmitted Injection 15:00 Stat Ekg For Chest [facility] 09/16/25 In Process Pain 14:47 Notify Of Changes [facility] 09/16/25 In Process From Base 14:47 Warble Saw Operator For [facility] 09/16/25 In Process 24 Hours 14:47 Emergency Dysrhythmia [facility] 09/16/25 In Process Protocol 14:47 Rhythm Strips Once [facility] 09/16/25 In Process Every Shift 14:47 Oxygen By Nasal RT 09/16/25 Transmitted Cannula 14:47 Amiodarone 150 Mg [facility] 09/16/25 Transmitted Bolus 15:00 Amiodarone Drip 1 PHA 09/16/25 Transmitted Mg/Min X 6hr 15:00 Amiodarone Drip 0.5 PHA 09/16/25 Transmitted Mg/Min 21:00 * Cardiology Consult CONS 09/16/25 Transmitted 14:47 Lisinopril Tablet [facility] 09/16/25 Verified (Zestril Tablet) 22:00 Date of Service: Sep 16, 2025 Billing Provider: ASHLEY BRITT Common Visit Codes: [id number] INP/OBS CARE (HIGH) ASHLEY BRITT Sep 16, 2025 15:09
--- NOTE | 2025-09-16 15:19 | ECG ---
[facility] Test Date: 2025-09-16 Test Time: 11:31:20 Pat Name: JENNIFER ROGERS Department: [facility] ED Patient ID: [facility]-[id number] Room: 0220T Gender: M Environmental Manager: eva : 1945 Requested By: LIZ THOMAS Order Number: [id number] Reading MD: Fletcher Cleaning Measurements Intervals [place] Rate: 146 P: 0 IA: 0 QRS: 25 QRSD: 90 T: 80 QT: 317 QTc: 494 Interpretive Statements Atrial fibrillation with rapid V-rate Repolarization abnormality, prob rate related Baseline wander in lead(s) V6 Electronically Signed On 09-23-2025 13:42:50 PDT by Fletcher Cleaning Please click the below link to view image of tracing.
--- NOTE | 2025-09-16 15:20 | ECG ---
[facility] Test Date: 2025-09-16 Test Time: 14:28:35 Pat Name: JENNIFER ROGERS Department: [facility] ED Patient ID: [facility]-[id number] Room: 0220T Gender: M Feed Preparation Operator: eva : 1945 Requested By: LIZ THOMAS Order Number: [id number] Reading MD: Fletcher Cleaning Measurements Intervals [place] Rate: 109 P: 0 VA: 0 QRS: 38 QRSD: 91 T: 69 QT: 345 QTc: 465 Interpretive Statements Atrial fibrillation Minimal ST depression, anterolateral leads Electronically Signed On 09-23-2025 13:43:13 PDT by Fletcher Celaning Please click the below link to view image of tracing.
[2025-09-16] MEDS: AMIODARONE BOLUS KIT 100 ML IV ONE (15:49)
[2025-09-16] MEDS: AMIODARONE 360mg/200mL PREMIX 200 ML IV ONE (16:08)
--- NOTE | 2025-09-16 17:04 | DVHCONRES ---
Date Seen: Sep 16, 2025 Resident Creating Document: PEREZ JACKSON RESIDENT Referring Physician Beatrice TARANGO Reason for Consultation new onset afib History of Present Illness An 80y old with PMHx hypertension and skin cancer on the face who came to ED due to palpitations. The patient states the palpitations started at 8 am and his apple watch showed HR 140s, he denies that this happened before, he denies SOB, chest pain or other symptoms At admission, it was found his HR 160s and metoprolol IV was given, later on amiodarone drip was started ECHO (pending official report): preserved EF and no LV thrombus Past Medical History Hypertension and skin cancer (resected) Past Surgical History skin biopsy Allergies: Coded Allergies: NO KNOWN ALLERGIES (Unverified , 08/12/25) Home Meds Active Scripts Amoxicillin & Pot Clavulanate (AUGMENTIN TABLET) 875 Mg Tb, 875 MG PO BID for 7 Days, #14 TAB Prov:ROSANNE GRIFFITH RESDIENT 08/12/25 Reported Medications Lisinopril (Lisinopril) 20 Mg Tab, 1 TAB PO BID, #30 TAB 5 Refills 09/16/25 Home Meds Lisinopril and amlodipine Current Medications Current Medications Medications (Trade) Dose Ordered Sig/Shan Route PRN Reason Start Time Stop Time Status Last Admin Acetaminophen/ Hydrocodone Bitart ([place] 5/325MG Tab) 1 tab Q4HP PRN PO MODERATE PAIN (4-6 PAIN SCALE) 09/16/25 15:00 Ondansetron HCl (Zofran) 4 mg Q4HP PRN IV NAUSEA / VOMITING 09/16/25 15:00 Docusate Sodium (Colace Capsule) 100 mg BIDPRN PRN PO FOR CONSTIPATION 09/16/25 15:00 Enoxaparin Sodium (Lovenox) 40 mg DAILY SC 09/17/25 10:00 Acetaminophen (Tylenol Tablet) 650 mg Q6HP PRN PO PAIN SCALE 1-3 OR TEMP>100.4 09/16/25 15:00 Nitroglycerin (Ntrostat Sublingual) 0.4 mg Q5MINP PRN SL FOR CHEST PAIN 09/16/25 15:00 Morphine Sulfate 2 mg Q30M PRN IV FOR CHEST PAIN 09/16/25 15:00 Amiodarone HCL/ Dextrose 200 ml @ 16.66 mls/ hr Q12H IV 09/16/25 21:00 Lisinopril (Zestril Tablet) 20 mg BID PO 09/16/25 22:00 Review of Systems States palpitations, denies chest pain, SOB, denies other symptoms Vital Signs Vital Signs Date Time Temp Pulse Resp B/P (MAP) Pulse Ox O2 Delivery O2 Flow Rate FiO2 09/16/25 14:28 109 09/16/25 14:00 97 124/84 (97) 97 09/16/25 12:30 98.0 98.0 09/16/25 12:29 Room Air* 0 21 Physical Exam General: alert and oriented HEENT: No icterus or JVD appreciated. Cardiac: Irregular heart rhythm Lungs: clear . Abdomen: no tender at palpation Extremities: unremarkable Neuro: unremarkable Labs/Diagnostic Data Labs Test 09/16/25 12:43 Range/Units White Blood Count 7.4 4.4-10.8 10^3/uL Red Blood Count 4.59 4.5-5.90 10^6/uL Hemoglobin 14.9 13.5-17.5 g/dL Hematocrit 44.2 41.0-53.0 % Mean Corpuscular Volume 96.4 80.0-100.0 fL Mean Corpuscular Hemoglobin 32.5 H 28.0-32.0 pg Mean Corpuscular Hemoglobin Concent 33.7 32.0-36.0 g/dL Red Cell Distribution Width 12.7 11.8-14.3 % Platelet Count 167 140-450 10^3/uL Mean Platelet Volume 9.7 6.9-10.8 fL Neutrophils (%) (Auto) 77.4 37.0-80.0 % Lymphocytes (%) (Auto) 16.2 10.0-50.0 % Monocytes (%) (Auto) 5.8 0.0-12.0 % Eosinophils (%) (Auto) 0.2 0.0-7.0 % Basophils (%) (Auto) 0.4 0.0-2.0 % Neutrophils # (Auto) 5.7 1.6-8.6 10 ^3/uL Lymphocytes # (Auto) 1.2 0.4-5.4 10 ^3/uL Monocytes # (Auto) 0.4 0-1.3 10 ^3/uL Eosinophils # (Auto) 0 0-0.8 10 ^3/uL Basophils # (Auto) 0 0-0.2 10 ^3/uL Nucleated Red Blood Cells 0.0 % Prothrombin Time 11.9 H 9.3-11.8 sec Prothrombin Time INR 1.14 0.9-1.15 Activated Partial Thromboplast Time 25.0 24.5-34.5 SEC D-Dimer, Quantitative 0.35 0.0-0.49 mg/L FEU Sodium Level 145 136-145 mmol/L Potassium Level 3.9 3.5-5.1 mmol/L Chloride Level 109 H 98-107 mmol/L Carbon Dioxide Level 26 20-31 mmol/L Anion Gap 10 5-15 Blood Urea Nitrogen 15 9-23 mg/dL Creatinine 0.93 0.700-1.30 mg/dL Glomerular Filtration Rate Calc 82 >90 mL/min BUN/Creatinine Ratio 16.1 10.0-20.0 Serum Glucose 122 H 74-106 mg/dL Calcium Level 9.1 8.7-10.4 mg/dL Magnesium Level 2.2 1.6-2.6 mg/dL Total Bilirubin 1.1 H 0.2-1.0 mg/dL Aspartate Amino Transferase (AST) 21 13-40 U/L Alanine Aminotransferase (ALT) 19 7-40 U/L Alkaline Phosphatase 86 46-116 U/L Troponin I High Sensitivity 14 </=54 ng/L Total Protein 6.6 5.7-8.2 g/dL Albumin 4.3 3.2-4.8 g/dL Thyroid Stimulating Hormone (TSH) 0.90 0.55-4.78 uIU/mL Assessment New onset atrial fibrillation with RVR CHADVASC 3 Hypertension H/o skin cancer Plan/Recommendation Case discussed with Dr Mcgowan. A 80y old with HTN who came for new onset of atrial fibrillation. Because the onset was less than 48h and no intracardiac thrombus, we agree on amiodarone cardioversion. We are pending on the official report of the echocardiogram to rule out structural disease. Due to CHADVASC of 3, therapeutic enoxaparin is started. Patient still on afib but his HR is getting better, we will continue to follow up and later transition to oral medications. PT SEEN AND EXAMINED WITH CV TEAM AGREE WITH RESIDENT ASSESSMENT AND PLAN SHORT RUN OF AFIB, NEW ONSET CHECK ECHO RHYTHM CONTROL , WILL LIKELY CONVERT WITH AMIO Plan discussed with: Patient PEREZ JACKSON Sep 16, 2025 17:04 NADIA MCGOWAN MD Sep 17, 2025 17:31
[2025-09-16 17:14] LABS: Triglycerides 74 mg/dL (< 150)
[2025-09-16 17:16] LABS: Cholesterol 103 mg/dL (< 200); HDL Cholesterol 55 mg/dL (40-59)
[2025-09-16 19:15] VITALS: PULSE 90; RESP 14; O2SAT 97
[2025-09-16] MEDS: AMIODARONE 360mg/200mL PREMIX 200 ML IV SCH (21:18)
[2025-09-16] MEDS: ENOXAPARIN SOD 80 MG/0.8ML SYRINGE SC SCH (22:19)
[2025-09-16] MEDS: LISINOPRIL 20 MG TAB PO SCH (22:19)
[2025-09-16 22:29] VITALS: BP 138/88; PULSE 63; RESP 18; TEMP 97.7; TEMP 98.6; O2SAT 97
[2025-09-17] VITALS (9 sets, daily range): BP systolic 132–145; BP diastolic 71–90; PULSE 58–87; RESP 16–18; TEMP 97.9–98.4; O2SAT 96–97
[2025-09-17 07:06] LABS: Hematocrit 45.4 % (41.0-53.0); Hemoglobin 15.3 g/dL (13.5-17.5); Mean Corpuscular Hemoglobin 32.3 pg (28.0-32.0); Mean Corpuscular Volume 95.4 fL (80.0-100.0); Nucleated Red Blood Cells % 0.0 %
[2025-09-17 07:28] LABS: Alanine Aminotransferase 18 U/L (7-40); Albumin 4.1 g/dL (3.2-4.8); Alkaline Phosphatase 80 U/L (46-116); Anion Gap 12 (5-15); BUN/Creatinine Ratio 12.8 (10.0-20.0); Bilirubin, Total 0.9 mg/dL (0.2-1.0); Blood Urea Nitrogen 11 mg/dL (9-23); Carbon Dioxide 26 mmol/L (20-31); Chloride 106 mmol/L (98-107); Potassium 3.5 mmol/L (3.5-5.1); Sodium 144 mmol/L (136-145); Total Protein 6.3 g/dL (5.7-8.2)
[2025-09-17 07:34] LABS: Calcium 8.6 mg/dL (8.7-10.4); Glucose 110 mg/dL (74-106)
[2025-09-17] MEDS ORDERED: ENOXAPARIN SOD 40 MG/0.4 ML SYRINGE SC SCH (10:00)
--- NOTE | 2025-09-17 13:24 | DVHPNRES ---
Progress Note Date Seen: Sep 17, 2025 Resident Creating Document: PEREZ JACKSON RESIDENT Medical Necessity Reason Pt with a Central, PICC or Fol: No Subjective Review of Systems Patient is seen and examined at bedside, no chest pain, no palpitations, no SOB Objective vital signs Vital Sign Date Time Temp Pulse Resp B/P (MAP) Pulse Ox O2 Delivery O2 Flow Rate FiO2 09/17/25 09:43 142/77 09/17/25 08:57 97.9 61 18 97 97.9 09/17/25 08:00 Room Air* 0 21 Total Intake and Output 09/16/25 09/16/25 09/17/25 15:00 23:00 07:00 Intake Total 450 ml 616.65 ml 200 ml Balance 450 ml 616.65 ml 200 ml medications Current Medications Medications Dose Ordered Sig/Shan Route Start Time Stop Time Status Last Admin Dose Admin Acetaminophen/ Hydrocodone Bitart 1 tab Q4HP PRN PO 09/16/25 15:00 Ondansetron HCl 4 mg Q4HP PRN IV 09/16/25 15:00 Docusate Sodium 100 mg BIDPRN PRN PO 09/16/25 15:00 Acetaminophen 650 mg Q6HP PRN PO 09/16/25 15:00 Nitroglycerin 0.4 mg Q5MINP PRN SL 09/16/25 15:00 Morphine Sulfate 2 mg Q30M PRN IV 09/16/25 15:00 Lisinopril 20 mg BID PO 09/16/25 22:00 09/17/25 09:43 20 MG Enoxaparin Sodium 80 mg Q12HR SC 09/16/25 22:00 09/17/25 09:44 80 MG Amiodarone HCl 250 ml @ 16.667 mls/ hr Q15H IV 09/17/25 09:45 09/17/25 09:53 16.667 MLS/HR Examination sinus rhythm, S1, S2 present Examination: GENERAL:Normal, HEENT:Normal, NECK:Normal, LUNGS:Normal, CVS:Normal laboratory and microbiology Laboratory Tests 09/17/25 06:25 Test 09/17/25 06:25 Range/Units Serum Glucose 110 H 74-106 mg/dL Problem List/Assessment/Plan Problem List/Assessment/Plan New onset atrial fibrillation with RVR CHADVASC 3 New onset heart failure with mildly reduced ejection fraction Hypertension H/o skin cancer Patient is now on sinus rhythm, amiodarone drip is stopped, amiodarone PO started 200 mg every 12h for a month at least. Therapeutic enoxaparin can be transitioned to apixaban per primary team. Lisinopril and amlodipine can be started per primary team discrepancy. Low dose metoprolol is started. His echo showed EF 45- 50%, sglt2 will also be started. Patient right now is asymptomatic, no need of further work up as inpatient Patient will need follow up with cardiology as outpatient. We will sign off of this case. Plan discussed with: Patient My Orders My Orders Orders - PEREZ JACKSON Procedure Category Date Status Time Enoxaparin Sodium PHA 09/16/25 In Process (Lovenox) 22:00 Amiodarone Tablet PHA 09/17/25 Logged (Cordarone Tablet) 13:15 Communication Order ORDERS 09/17/25 Transmitted 13:08 Visit Coding Cardiology RES Date of Service: Sep 17, 2025 Billing Provider: NADIA MCGOWAN MD Cardiology Common Codes: [id number]/[id number] SAME DATE (Mod) PEREZ JACKSON Sep 17, 2025 13:24
[2025-09-17] MEDS: AMIODARONE HCL 200 MG TAB PO SCH (13:54)
--- NOTE | 2025-09-17 14:34 | DVHPNRES ---
Progress Note Date Seen: Sep 17, 2025 Resident Creating Document: HUMBERTO KEATING RESIDENT Medical Necessity Reason Pt with a Central, PICC or Fol: No Subjective Review of Systems González Alcala is a 80-year-old male with past medical history of hypertension and skin cancer who presented to the hospital insoles for what showed his heart rate to be in the 140s to 160s range. The patient states that he did not have any symptoms of shortness of breaths, palpitations or dizziness. He was just walking when he noticed his heart rate to be in the 140s to 160s range on his smart phone, and he was asked to go to the ER by his neighbor. On admission his heart rate was in the 160s and he had AFib. He was first given iv metoprolol 2.5 mg iv once and then started on amiodarone drip. Rhythm converted to sinus. Cardiology saw the patient and recommended stopping amiodarone drip and started on amiodarone 200 mg p.o. q.12 hours. The patient was recommended follow up with Cardiology outpatient post discharge. Past medical history: Hypertension, skin cancer (2 months back) Past surgical history: None Social & Personal history: Lives alone at home Smoking: Denies Alcohol: Rare alcohol consumption Drugs: Denies Allergies: No known allergies Patient seen and examined at bedside. Patient is alert and oriented to time, place person and responding to all questions. Eyes: No Pain, No Vision change, No Conjunctivae inflammation, No Eyelid inflammation, No Redness ENT: No Ear pain, No Ear discharge, No Nose pain, No Nose discharge, No Nose congestion, No Mouth pain, No Mouth swelling, No Throat pain, No Throat swelling Cardiovascular: No Chest Pain, No Palpitations, No Orthopnea, No Paroxysmal No Dyspnea, No Edema, No Lt Headedness Respiratory: No Cough, No Dry, No Shortness of breath, No SOB with exertion, No Wheezing, No Hemoptysis, No Pleuritic Pain, No Sputum Gastrointestinal: No Nausea, No Vomiting, No Abdominal Pain, No Diarrhea, No Constipation, No Melena, No Hematochezia Genitourinary: No Dysuria, No Frequency, No Incontinence, No Hematuria, No Retention Objective vital signs Vital Sign Date Time Temp Pulse Resp B/P (MAP) Pulse Ox O2 Delivery O2 Flow Rate FiO2 09/17/25 13:00 98.0 62 18 133/71 (91) 97 98.0 09/17/25 08:00 Room Air* 0 21 Total Intake and Output 09/16/25 09/16/25 09/17/25 15:00 23:00 07:00 Intake Total 450 ml 616.65 ml 200 ml Balance 450 ml 616.65 ml 200 ml medications Current Medications Medications Dose Ordered Sig/Shan Route Start Time Stop Time Status Last Admin Dose Admin Acetaminophen/ Hydrocodone Bitart 1 tab Q4HP PRN PO 09/16/25 15:00 Docusate Sodium 100 mg BIDPRN PRN PO 09/16/25 15:00 Acetaminophen 650 mg Q6HP PRN PO 09/16/25 15:00 Lisinopril 20 mg BID PO 09/16/25 22:00 09/17/25 09:43 20 MG Enoxaparin Sodium 80 mg Q12HR SC 09/16/25 22:00 09/17/25 09:44 80 MG Amiodarone HCl 200 mg Q12HR PO 09/17/25 13:15 09/17/25 13:54 200 MG Examination General Appearance: Cooperative. Well developed. Well nourished. NAD Head Exam: Normal inspection Neck Exam: Normal inspection. Non-tender. Normal alignment Pulmonary/Respiratory: Chest non-tender. Clear bilateral breath sounds, no crackles, no wheezing. Cardiovascular/Chest: Regular rate and rhythm. No murmurs. No JVD. Peripheral Pulses: 2+ Radial (R). 2+ Radial (L). 2+ Pedal (R). 2+ Pedal (L) Abdominal Exam: Normal bowel sounds. Soft. normal abdomen, no visible veins, Nontender. No hepatospenomegaly. No masses Ankle Exam: Negative ankle edema Lower extremities: Negative lower extremity edema Neuro/Mental Status: A&O x4. Coherent. Thoughts/Psych: Normal thought pattern. Appropriate mood and affect. Good judgement and insight Skin Exam: Normal inspection. Normal color. Warm. Dry laboratory and microbiology Laboratory Tests 09/17/25 06:25 Test 09/17/25 06:25 Range/Units Serum Glucose 110 H 74-106 mg/dL Labs and/or images reviewed: Labs reviewed by me, Image(s) reviewed by me Problem List/Assessment/Plan Problem List/Assessment/Plan Assessment and plan: # new onset atrial fibrillation with RVR with secondary hypercoagulable state - CHADVASC score 3 -started on amiodarone drip on 09/16/2025, discontinued on 09/17/2025 -started on amiodarone 200 mg p.o. b.i.d. today -echo report pending -cardiology consulted- followed up with the patient and switched amiodarone drip to oral amiodarone -lovenox 80mg bid sc # Hypertensive heart disease -continue lisinopril 20 mg b.i.d. # history of skin cancer -continue follow up with PCP DVT prophylaxis: lovenox Goals of care: Full code, discussed for >22 minutes Plan discussed with Dr Musa Plan discussed with: Patient My Orders My Orders Orders - HUMBERTO KEATING Procedure Category Date Status Time Urinalysis LAB 09/17/25 Logged 10:06 Date of Service: Sep 17, 2025 Billing Provider: MARY MUSA MD Common Visit Codes: [id number] INP/OBS CARE(HIGH) Date of Service: Sep 17, 2025 Billing Provider: MARY MUSA MD Common Visit Codes: [id number] INP/OBS CARE(HIGH) HUMBERTO KEATING RESIDENT Sep 17, 2025 14:34 BRIGETTE OCONNELL Sep 17, 2025 19:30
--- NOTE | 2025-09-17 15:23 | DVHSR ---
APPROVED REPORT EXAM: Two-dimensional and M-mode echocardiogram with Doppler and color Doppler. Blood Pressure: 124/84 mmHg INDICATION Atrial Fibrillation new onset RISK FACTORS Height: 6'0, Weight: 170 DIMENSIONS LVDd4.9 (3.8-5.7cm)LA (2D)5.0 (1.9-4.0cm)Aortic Root3.6 (2.0-3.7cm) LVDs3.6 (2.5-4.0cm)LA (MM) (1.9-4.0cm)Aortic Cusp Exc1.2 (1.5-2.0cm) EF (%) 52.0 (55-70%)Rt. Atrium4.4 (1.9-4.0cm)Asc. Aorta cm IVSd0.8 (0.7-1.1cm)RV (D)3.9 (1.8-2.4cm) PWd0.9 (0.7-1.1cm) Mitral Valve MitralMitral Stenosis E wave0.88m/sMV Mean GR.1mmHg A wavem/sMV Peak GR.53mmHg E/A ratio0.02D MVAcm2 DECEL [id number] 1/2 Timems Aortic Valve Aortic ValveAortic Stenosis V10.84m/Hira Mean GR.mmHg V21.32m/Hira Peak GR.7mmHg LVOT Diameter2.2 (1.8-2.4cm)Doppler AVA2.42cm2 Pulmonic Valve V21.26m/s Tricuspid Valve TR Velocity1.98m/s [id number] Conclusion lvef 45-50% mild LV dysfunction restrictive LV filling normal RV function left atrium enlarged
[2025-09-17 21:14] LABS: Urine Protein, UAD Negative (Negative)
[2025-09-17 21:15] LABS: Barbiturate Scree,Urine Neg (NEGATIVE); Opiate Scree,Urine Neg (NEGATIVE)
[2025-09-17 21:16] LABS: Amphetamine Screen, Urine Neg (NEGATIVE); Benzodiazephine Screen, Urine Neg (NEGATIVE); Cannabinoid Screen, Urine Neg (NEGATIVE); Cocaine Screen, Urine Neg (NEGATIVE); Phencyclidine Screen, Urine Neg (NEGATIVE)
[2025-09-18] VITALS (7 sets, daily range): BP systolic 134–156; BP diastolic 68–88; PULSE 67–90; RESP 18; TEMP 36.2; O2SAT 96–98
[2025-09-18] MEDS ORDERED: APIX2.5T PO (08:56)
[2025-09-18] MEDS: EMPAGLIFLOZIN 10 MG TAB PO SCH (09:27)
[2025-09-18] MEDS: METOPROLOL SUCCINATE XL 50 MG TAB PO SCH (09:27)
[2025-09-18] MEDS: APIXABAN 2.5 MG TAB PO SCH (10:57)
--- NOTE | 2025-09-18 11:24 | ECG ---
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
[2025-09-18] MEDS ORDERED: METO25TA93 PO (11:29)
[2025-09-18] MEDS ORDERED: EMPA1TAB PO (11:29)
[2025-09-18] MEDS ORDERED: AMIO200T33 PO (11:29)
--- NOTE | 2025-09-18 15:31 | DVHDSRES ---
Discharge Summary Date of Admission Resident Creating Document: HUMBERTO KEATING RESIDENT Sep 16, 2025 at 14:47 Date of Discharge: Sep 18, 2025 Admitting Diagnosis new onset Afib Labs/Diagnostic Data: Laboratory Results Test 09/17/25 20:10 09/17/25 06:25 09/16/25 12:43 Urine Color Yellow (Yellow) Urine Clarity Clear (Clear) Urine pH 5.5 (5.0-9.0) Urine Specific [place] 1.017 (1.001-1.035) Urine Protein Negative (Negative) Urine Ketones Trace (Negative) Urine Blood Negative /uL (Negative) Urine Nitrite Negative (Negative) Urine Bilirubin Negative (Negative) Urine Urobilinogen Normal mg/dL (Negative) Urine Leukocyte Esterase Negative /uL (Negative) Urine RBC None seen /hpf (0 - 3) Urine Microscopic WBC < 1 /HPF (0-3) Urine Squamous Epithelial Cells None seen /hpf (<5) Urine Bacteria None seen /hpf (None Seen) Urine Mucus Few (None Seen) Urine Glucose Normal mg/dL (Normal) Urine Opiates Screen Neg (NEGATIVE) Urine Fentanyl Screen Neg (NEGATIVE) Urine Barbiturates Screen Neg (NEGATIVE) Urine Phencyclidine Screen Neg (NEGATIVE) Urine Amphetamines Screen Neg (NEGATIVE) Urine Benzodiazepines Screen Neg (NEGATIVE) Urine Cocaine Screen Neg (NEGATIVE) Urine Cannabinoids Screen Neg (NEGATIVE) White Blood Count 6.3 10^3/uL (4.4-10.8) Red Blood Count 4.75 10^6/uL (4.5-5.90) Hemoglobin 15.3 g/dL (13.5-17.5) Hematocrit 45.4 % (41.0-53.0) Mean Corpuscular Volume 95.4 fL (80.0-100.0) Mean Corpuscular Hemoglobin 32.3 pg (28.0-32.0) Mean Corpuscular Hemoglobin Concent 33.8 g/dL (32.0-36.0) Red Cell Distribution Width 12.9 % (11.8-14.3) Platelet Count 171 10^3/uL (140-450) Mean Platelet Volume 9.9 fL (6.9-10.8) Neutrophils (%) (Auto) 63.3 % (37.0-80.0) Lymphocytes (%) (Auto) 28.4 % (10.0-50.0) Monocytes (%) (Auto) 7.0 % (0.0-12.0) Eosinophils (%) (Auto) 1.0 % (0.0-7.0) Basophils (%) (Auto) 0.3 % (0.0-2.0) Neutrophils # (Auto) 4.0 10 ^3/uL (1.6-8.6) Lymphocytes # (Auto) 1.8 10 ^3/uL (0.4-5.4) Monocytes # (Auto) 0.4 10 ^3/uL (0-1.3) Eosinophils # (Auto) 0.1 10 ^3/uL (0-0.8) Basophils # (Auto) 0 10 ^3/uL (0-0.2) Nucleated Red Blood Cells 0.0 % Sodium Level 144 mmol/L (136-145) Potassium Level 3.5 mmol/L (3.5-5.1) Chloride Level 106 mmol/L (98-107) Carbon Dioxide Level 26 mmol/L (20-31) Anion Gap 12 (5-15) Blood Urea Nitrogen 11 mg/dL (9-23) Creatinine 0.86 mg/dL (0.700-1.30) Glomerular Filtration Rate Calc 86 mL/min (>90) BUN/Creatinine Ratio 12.8 (10.0-20.0) Serum Glucose 110 mg/dL (74-106) Calcium Level 8.6 mg/dL (8.7-10.4) Total Bilirubin 0.9 mg/dL (0.2-1.0) Aspartate Amino Transferase (AST) 23 U/L (13-40) Alanine Aminotransferase (ALT) 18 U/L (7-40) Alkaline Phosphatase 80 U/L (46-116) Total Protein 6.3 g/dL (5.7-8.2) Albumin 4.1 g/dL (3.2-4.8) Prothrombin Time 11.9 sec (9.3-11.8) Prothrombin Time INR 1.14 (0.9-1.15) Activated Partial Thromboplast Time 25.0 SEC (24.5-34.5) D-Dimer, Quantitative 0.35 mg/L FEU (0.0-0.49) Hemoglobin A1c 5.5 % A1C (<5.7) Magnesium Level 2.2 mg/dL (1.6-2.6) Troponin I High Sensitivity 14 ng/L (</=54) Triglycerides Level 74 mg/dL (< 150) Cholesterol Level 103 mg/dL (< 200) LDL Cholesterol 39 mg/dL (< 100) HDL Cholesterol 55 mg/dL (40-59) Thyroid Stimulating Hormone (TSH) 0.88 uIU/mL (0.55-4.78) Other Laboratory Tests 09/17/25 06:25 Brief Hx & Hospital Course: González Alcala is an 80-year-old male with past medical history of hypertension and skin cancer who presented to the hospital after his smart watch showed his heart rate to be in the 140s to 160s range. The patient states that he did not have any symptoms of shortness of breaths, palpitations or dizziness. He was just walking when he noticed his heart rate to be in the 140s to 160s range on his smart watch, and he was asked to go to the ER by his neighbor. On admission, his heart rate was in the 160s and was found to be in AFib. He was first given IV metoprolol 2.5 mg iv once and then started on amiodarone drip as his A Fibb did not convert. Cardiology saw the patient and recommended stopping Amiodarone drip and started on Amiodarone 200 mg p.o. q.12 hours. Patient later converted to sinus. The patient was recommended follow up with Cardiology outpatient post discharge. PATIENT had an ECHO done which showed EF of 40-45%. Patient will need to be worked up for Ischemic Cardiomyopathy with Dr. Yee office. On evaluation today, patient is doing well clinically. He is in sinus rhythm. Patient was transitioned from therapeutic Lovenox to Apixaban. Medications and recommendations were thoroughly explained to the patient and he demonstrated understanding of the same. All questions were answered and concerns were addressed. I will see the patient with Dr. Bean on Tuesday in the clinic. Past medical history: Hypertension, skin cancer (2 months back) Past surgical history: None Social & Personal history: Lives alone at home Smoking: Denies Alcohol: Rare alcohol consumption Drugs: Denies Allergies: No known allergies General Appearance: Cooperative. Well developed. Well nourished. NAD Head Exam: Normal inspection Neck Exam: Normal inspection. Non-tender. Normal alignment Pulmonary/Respiratory: Chest non-tender. Clear bilateral breath sounds, no crackles, no wheezing. Cardiovascular/Chest: Regular rate and rhythm. No murmurs. No JVD. Peripheral Pulses: 2+ Radial (R). 2+ Radial (L). 2+ Pedal (R). 2+ Pedal (L) Abdominal Exam: Normal bowel sounds. Soft. normal abdomen, no visible veins, Nontender. No hepatospenomegaly. No masses Ankle Exam: Negative ankle edema Lower extremities: Negative lower extremity edema Neuro/Mental Status: A&O x4. Coherent. Thoughts/Psych: Normal thought pattern. Appropriate mood and affect. Good judgement and insight Skin Exam: Normal inspection. Normal color. Warm. Dry Operations or Procedures 1.PROCEDURE(s): CXR2 - CHEST TWO VIEWS ROUTINE REASON: Atrial fibrillation uncontrolled ORDER NUMBER(s): [id number], ACCESSION NUMBER(s): [id number] CHEST TWO VIEWS ROUTINE CLINICAL HISTORY: Atrial fibrillation uncontrolled COMPARISON: None TECHNIQUE: Frontal and lateral view of the chest was obtained FINDINGS: Lines and Tubes: None Lungs: No focal consolidation. Pleura: No effusion. No pneumothorax. Cardiomediastinal contours: Unremarkable Bones: No acute osseous abnormality. IMPRESSION: 1. No acute cardiopulmonary disease. 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 Blood Pressure: 124/84 mmHg INDICATION Atrial Fibrillation new onset RISK FACTORS Height: 6'0, Weight: 170 DIMENSIONS LVDd 4.9 (3.8-5.7cm) LA (2D) 5.0 (1.9-4.0cm) Aortic Root 3.6 (2.0- 3.7cm) LVDs 3.6 (2.5-4.0cm) LA (MM) (1.9-4.0cm) Aortic Cusp Exc 1.2 (1.5- 2.0cm) EF (%) 52.0 (55-70%) Rt. Atrium 4.4 (1.9-4.0cm) Asc. Aorta cm IVSd 0.8 (0.7-1.1cm) RV (D) 3.9 (1.8-2.4cm) PWd 0.9 (0.7-1.1cm) Mitral Valve Mitral Mitral Stenosis E wave 0.88m/s MV Mean GR. 1mmHg A wave m/s MV Peak GR. 53mmHg E/A ratio 0.0 2D MVA cm2 DECEL Time 162ms PRESS 1/2 Time ms Aortic Valve Aortic Valve Aortic Stenosis V1 0.84m/s AO Mean GR. mmHg V2 1.32m/s AO Peak GR. 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 Carrillo follow up with Dr. Remy Medications: amiodarone 200mg po bid apixaban 2.5 mg po bid metoprolol 25mg po daily Scheduled Amiodarone Hcl (Amiodarone Hcl), 200 MG PO BID Amoxicillin & Pot Clavulanate (Augmentin Tablet), 875 MG PO BID Apixaban Base (Eliquis), 2.5 MG PO BID Empagliflozin (Jardiance), 10 MG PO DAILY Lisinopril (Lisinopril), 1 TAB PO BID, (Reported) Metoprolol Succinate (Metoprolol Succinate Er), 1 TAB PO DAILY Discharge Statement: "Patient was advised to return to the ER or call 911 if any headaches, dizziness, shortness of breath, chest pain, abdominal pain, bleeding, fevers, or worsening of medical condition. Patient was counseled about treatment plan, medications, possible side effects, patientverbalized understanding. All questions were answered to the best of my ability. This discharge took greater then 30 minutes in planning, reviewing documentation, counseling the patient, and discussing with other team members." ASSESSMENT ASSESSMENT Assessment new onset afib hypertension,controlled Date of Service: Sep 18, 2025 Billing Provider: HUMBERTO KEATING RESIDENT Common Visit Codes: 76445-PXT/OBS DISCH DAY >30min HUMBERTO KEATING RESIDENT Sep 18, 2025 15:31 MARY CURRIE MD Sep 18, 2025 17:10
== END 2025-09-18 13:02 | disposition home or self-care (01) | DRG 308 ==
LOC: EDBD 11:26 → ER 11:26 → OVERFLOW 14:47 → TELE-CENTR 21:34
PROVIDERS: ADMIT Internal Medicine; ATTEND Internal Medicine
DX: I48.0 Paroxysmal atrial fibrillation (principal); I50.21 Acute systolic (congestive) heart failure; D68.69 Other thrombophilia; I11.0 Hypertensive heart disease with heart failure; Z85.828 Personal history of other malignant neoplasm of skin
CPT/HCPCS: 36415; 71046; 80053; 80061; 80307; 81001; 83036; 83735; 84443; 84484; 85025; 85379; 85610; 85730; 93005; 93306; 96361; 96374; G0378

== ENCOUNTER 2025-11-07 12:53 | Outpatient (CLI) | payer OTHER ==
[~2025-11-07 12:53] MED LIST changes: +AMIO200T33 PO; +APIX2.5T PO; +EMPA1TAB PO; +LISI20TA56 PO; +METO25TA93 PO
== END 2025-11-07 17:00 | disposition home or self-care (01) ==
LOC: Rad HDHVI 12:53
PROVIDERS: ATTEND Internal Medicine Cardiovascular Disease
DX: I07.1 Rheumatic tricuspid insufficiency (principal); I11.9 Hypertensive heart disease without heart failure; E78.5 Hyperlipidemia, unspecified
CPT/HCPCS: 93306

== ENCOUNTER 2025-11-13 09:29 | Outpatient (CLI) | payer OTHER ==
[~2025-11-13] VITALS: Ht 182.9 cm; Wt 78.9 kg
--- NOTE | 2025-11-22 13:35 | DVHSR ---
APPROVED REPORT Exam: Nuclear Stress Test Indication: Atrial Fibrillation Ht: 6 ft 0 in Wt: 174 lbs BSA: 2.01 m2 HR: 51 bpm BP: 147/80 mmHg BMI: 23.59 Rhythm: sinus bradycardia, 1st degree AV block Medical History Medical History: HTN, Hyperlipidemia, Diabetes, Smoking, Atrial Fibrillation, CHF Medications: Amiodarone, Losartan, Atorvastatin, Metoprolol, Eliquis, Jardiance Allergies: No known drug allergies Cardiac Risk Factors: Family Hx of CAD Stress Test Details Stress Test: Exercise stress testing was performed using a modified Kenneth protocol. HR Resting HR: 51 bpm Max Heart Rate (APMHR): 138.293952 bpm Max HR Achieved: 131 bpm Target HR (85% APMHR): 117.269202 bpm % of APMHR: 94.93 Recovery HR: 63 bpm HR response to stress: Normal HR response to stress BP Resting BP: 147/80 mmHg Max BP: 219/96 mmHg Recovery BP: 160/79 mmHg BP response to stress: resting hypertension- exaggerated response ECG Resting ECG: Sinus Bradycardia, 1st degree AV block Stress ECG: Sinus Tachycardia Arrhythmia: PVC, PACs Recovery ECG: Sinus Rhythm, 1st degree AV block Clinical Reason for Termination: target HR achieved Stress Symptoms: none Exercise duration: 5 min 00 sec Exercise capacity: 6.50 METs Stress ECG Conclusion NON ISCHEMIC CLINICAL RESPONSE NON ISCHEMIC ECG RESPONSE NON ISCHEMIC CARDIOLITE PERFUSION SCAN EF 40% NM EXAM: Myocardial Perfusion REST/STRESS Imaging Protocol: Rest Tc-99m/Stress Tc-99m 1 day Resting Data Rest SPECT myocardial perfusion imaging was performed in supine position 30 minutes following the intravenous injection of 10.33 mCi of Tc-99m Sestamibi. Time of rest injection: 941 Date: 11/13/2025 Time of rest imagin Date: 11/13/2025 Administration Route: IV Administration Site: Left AC Exercise Stress At peak stress, the patient was injected intravenously with 30.2 mCi of Tc-99m Sestamibi. Time of stress injection: 0 Date: 11/13/2025 Time of stress imagin Date: 11/13/2025 Administration Route: IV Administration Site: Left AC Heart Rate at time of stress injection: 120 bpm. Patient continued to exercise for 0.5 minute(s). Gated Stress SPECT was performed 15 minutes after stress injection. The images were gated to evaluate regional wall motion and calculate left ventricular ejection fraction. Comments Cardiolite injection at 4 minutes, 24 seconds into test. Nuclear Conclusion NON ISCHEMIC CLINICAL RESPONSE NON ISCHEMIC ECG RESPONSE NON ISCHEMIC CARDIOLITE PERFUSION SCAN EF 40%
== END 2025-11-13 17:00 | disposition home or self-care (01) ==
LOC: Rad HDHVI 09:29
PROVIDERS: ATTEND Internal Medicine Cardiovascular Disease
DX: I49.1 Atrial premature depolarization (principal); I49.3 Ventricular premature depolarization; I44.0 Atrioventricular block, first degree; R00.0 Tachycardia, unspecified; R00.1 Bradycardia, unspecified; I48.0 Paroxysmal atrial fibrillation; I11.0 Hypertensive heart disease with heart failure; I50.22 Chronic systolic (congestive) heart failure; E11.9 Type 2 diabetes mellitus without complications; E78.5 Hyperlipidemia, unspecified; R94.31 Abnormal electrocardiogram [ECG] [EKG]; F17.210 Nicotine dependence, cigarettes, uncomplicated; Z82.49 Family history of ischemic heart disease and other diseases of the circulatory system
CPT/HCPCS: 78452; 93017; A9500; 96374